=== PATIENT | female | born 1960 | race Caucasian/White ===

== ENCOUNTER → 2016-10-14 | Outpatient (CLI) | payer OTHER ==
--- NOTE | 2016-10-14 13:09 | WOMENS IMAGING REPORT ---
EXAM DESCRIPTION: BILAT SCREENING MAMMO W/CAD COMPLETED DATE/TIME: 10/14/2016 11:02 am REASON FOR STUDY: Z12.31, ROUTINE SCREENING MAMMO Z12.31 ENCNTR SCREEN MAMMOGRAM FOR MALIGNANT NEOP LASM OF LUCY COMPARISON: 2011 to 2014 TECHNIQUE: Standard craniocaudal and mediolateral oblique views of each breast recorded using CrossChxa l acquisition. LIMITATIONS: None. FINDINGS: No masses, calcifications or architectural distortion. No areas of suspicion. Read with the assistance of CAD. .[facility] - R2 Cenova Version 1.3 .[facility] - R2 Cenova Version 1.3 .[facility] - R2 Cenova Version 2.4 .[facility] [place] - R2 Cenova Version 2.4 .[facility] - R2 Abalone Fisherman Version 9.2 IMPRESSION: NORMAL MAMMOGRAM. BIRADS 1. BREAST DENSITY: c. The breasts are heterogeneously dense, which may obscure small masses. BIRAD: 1 NEGATIVE RECOMMENDATION: ROUTINE SCREENING COMMENT: The patient has been notified of the results by letter per SA requirements. Additional no tification policies are in place for contacting patient with suspicious or incomplete findings. Quality ID #[id number]: The [employer] [employer] recommends an annual screening mammogram for women aged 40 years or over. This facility utilizes a reminder system to ensure that all patients receive reminder letters, and/or direct phone calls for appointments. This includes reminders for routine scr eening mammograms, diagnostic mammograms, or other Breast Imaging Interventions when appropriate. Th is patient will be placed in the appropriate reminder system. The [place] [employer] (ACR) has developed recommendations for screening MRI of the breast s in certain patient populations, to be used in conjunction with mammography. Breast MRI surveillanc e may be appropriate for women with more than 20% lifetime risk of developing breast cancer as deter mined by genetic testing, significant family history of the disease, or history of mantle radiation f or Hodgkins Disease. ACR Practice Guidelines 2008. TECHNICAL DOCUMENTATION: FINDING NUMBER: (1) ASSESSMENT: (1) JOB ID: [id number] [employer]- All Rights Reserved
== END ==
LOC: WI 13:46
PROVIDERS: ATTEND Family Medicine
DX: Z12.31 Encounter for screening mammogram for malignant neoplasm of breast (principal)
CPT/HCPCS: 77067; G0202

== ENCOUNTER → 2018-01-01 | Outpatient (CLI) | payer OTHER ==
--- NOTE | 2018-01-01 16:12 | WOMENS IMAGING REPORT ---
EXAM DESCRIPTION: BILAT SCREENING MAMMO W/CAD COMPLETED DATE/TIME: 01/01/2018 2:28 pm REASON FOR STUDY: BILATERAL SCREENING MAMMO/Z12.31 R94.31 ABNORMAL ELECTROCARDIOGRAM ECG EKG Z12.31 ENCNTR SCREEN MAMMOGRAM FOR MALIGNANT NEOPLASM OF LUCY COMPARISON: Multiple since 2011 TECHNIQUE: Standard craniocaudal and mediolateral oblique views of each breast recorded using digita l acquisition. LIMITATIONS: None. FINDINGS: No masses, calcifications or architectural distortion. No areas of suspicion. Read with the assistance of CAD. .[facility] - R2 Cenova Version 1.3 .[facility] - R2 Cenova Version 1.3 .[facility] - R2 Cenova Version 2.4 .[facility] R2 Cenova Version 2.4 .[facility] - R2 [employer] Version 9.2 IMPRESSION: NORMAL MAMMOGRAM. BIRADS 1. BREAST DENSITY: c. The breasts are heterogeneously dense, which may obscure small masses. BIRAD: 1 NEGATIVE RECOMMENDATION: ROUTINE SCREENING Please continue yearly bilateral screening in January 2019. Consider bilateral screening tomosynth esis given heterogeneously dense tissue COMMENT: The patient has been notified of the results by letter per SA requirements. Additional no tification policies are in place for contacting patient with suspicious or incomplete findings. Quality ID #[id number]: The [employer] recommends an annual screening mammogram for women aged 40 years or over. This facility utilizes a reminder system to ensure that all patients receive reminder letters, and/or direct phone calls for appointments. This includes reminders for routine scr eening mammograms, diagnostic mammograms, or other Breast Imaging Interventions when appropriate. Th is patient will be placed in the appropriate reminder system. The [employer] (ACR) has developed recommendations for screening MRI of the breast s in certain patient populations, to be used in conjunction with mammography. Breast MRI surveillanc e may be appropriate for women with more than 20% lifetime risk of developing breast cancer as deter mined by genetic testing, significant family history of the disease, or history of mantle radiation f or Hodgkins Disease. ACR Practice Guidelines 2008. TECHNICAL DOCUMENTATION: FINDING NUMBER: (1) ASSESSMENT: (1) JOB ID: [id number] [employer]- All Rights Reserved Reading location - IP/workstation name: [id number]
--- NOTE | 2018-01-01 18:50 | XCELERA REPORT ---
[address] [address] Transthoracic Echocardiogram Report Name: RICARDO ANGULO Age: 57 yrs Gender: Female : 1960 Patient Status: Outpatient Patient Location: Study Date: 01/01/2018 01:14 PM Reason For Study: ABNORMAL EKG Ordering Physician: BRISA SMITH Performed By: Nicolle Garcia Interpretation Summary technically poor study done on a poorly calibrated GE machine, with no Apical 2 chamber view, flawed M-Mod measurements, no LYNSEY, and of course, no LVEF measurement. No BW, Ht, and BSA data. Min post. pericardial effusion. AV poorly visualized, unable to tell configration.No by peak AV velocity, no AR. Min mitral annular calcification. No MS, no MVP, no MR. LA doesnot appear enlarged, and not by M-mode., no LYNSEY measurement. LV appears normal by PLAX and A4C view, no A2 view obtained. See pictorals regarding segmental wall motion anlysis, incomplete.due to stated reasons. LVEF appears normal, no LVDD, no LV enlargement. RH is poorly imaged, and TR jet measurement is not valid, unable to calculate RVSP, and RA size no determined. No detail on ECHO request as to how abn. was EKG, hence unable to confirm . MMode/2D Measurements & Calculations RVDd: 3.4 cm LVIDd: 4.7 cm FS: 34.5 % Ao root diam: 2.4 cm IVSd: 0.83 cm LVIDs: 3.1 cm EDV(Teich): 102.4 ml Ao root area: 4.6 cm2 LVPWd: 1.3 cm ESV(Teich): 37.3 ml EF(Teich): 63.6 % Doppler Measurements & Calculations MV E max kofi: MV dec slope: Ao V2 max: LV V1 max P.7 cm/sec 140.9 cm/sec 4.3 mmHg MV A max kofi: 437.4 cm/sec2 Ao max PG: LV V1 max: 87.0 cm/sec MV dec time: 0.20 sec7.9 mmHg 103.6 cm/sec MV E/A: 1.00 PA V2 max: TR max kofi: 104.3 cm/sec 287.4 cm/sec PA max P.4 mmHg TR max P.0 mmHg Effusions Minimal pericardial effusion. I WMSI = 1.00 % Normal = 100 Segments Size X - Cannot 2 - 4 - 1-2 small Interpret 1 - Normal Hypokinetic 3 - AkineticDyskinetic 3-5 moderate 5 - 6-14 large Aneurysmal 15-16 diffuse : BRISA SMITH > Tim Nicholas
== END ==
LOC: SP 13:00
PROVIDERS: ATTEND Family Medicine
DX: R94.31 Abnormal electrocardiogram [ECG] [EKG] (principal); Z12.31 Encounter for screening mammogram for malignant neoplasm of breast
CPT/HCPCS: 77067; 93306